=== PATIENT | male | born 1990 | race African-American/Black ===

== ENCOUNTER 2024-02-02 10:04 | Emergency (ER) | payer BC, SELFPAY ==
[2024-02-02 10:28] VITALS: BP 148/67; PULSE 62; TEMP 36.4; O2SAT 100
--- NOTE | 2024-02-02 12:10 | ED.BACK ---
HPI - Back Pain/Injury General Chief Complaint: Back Pain/Injury Stated Complaint: BACK PAIN X4 DAYS Time Seen by Provider: 02/02/24 11:37 History of Present Illness HPI Narrative: Patient is a 34-year-old male who presents to the ER with back pain for the last 4 days. Began when he woke up in the morning on 01/29/24. He has a knot in the lower part of his back on the right side. Radiates down to his right leg. No numbness or tingling of the leg or groin. No difficulty with urination defecation. No improvement with naproxen or ibuprofen. Related Data Allergies Allergy/AdvReac Type Severity Reaction Status Date / Time No Known Allergies Allergy Verified 02/02/24 11:31 Review of Systems Constitutional: Constitutional: Reports no additional constitutional complaints Gastrointestinal: Gastrointestinal: Reports no additional gastrointestinal complaints Genitourinary: Genitourinary: Reports no additional male genitourinary complaints Musculoskeletal: Musculoskeletal: Reports back pain, Denies arthralgias, Denies joint swelling and Denies muscle cramps Neurologic: Reports system reviewed and no additional complaints, except as documented PMFSH Past Medical History Medical History (Updated 02/02/24 @ 12:17 by Franco Ferguson MD) Healthy adult male Surgical History Surgical History (Updated 02/02/24 @ 12:13 by Franco Ferguson MD) No history of previous surgery Exam Narrative: GENERAL: Well-appearing, well-nourished, and in no acute distress. HEAD: Normocephalic, atraumatic. ENT: Mucous membranes moist. CHEST: Clear to auscultation. No respiratory distress. HEART: Regular rate and rhythm. Normal peripheral pulses. BACK: no midline tenderness of the T/L-spine. There is a knot in the paraspinal musculature on the right side at the level of L5. EXTREMITIES: Normal range of motion. No edema. SKIN: Warm, dry, no rash. NEURO: Alert and oriented x3. PSYCH: Normal mood and affect. Course Course Emergency Course: Discussed treatment plan. No trauma so it is not felt that patient needs an imaging study. We will add on muscle relaxers for home. Discussed massage in hydration as well as rest. 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 Discussed he should not take Flexeril with operating heavy machinery.. Vital Signs Vital signs: Vital Signs Temperature 97.5 F L 02/02/24 10:28 Pulse Rate 62 02/02/24 10:28 Blood Pressure 148/67 H 02/02/24 10:28 Pulse Oximetry 100 02/02/24 10:28 Temperature 97.5 F L 02/02/24 10:28 Pulse Rate 62 02/02/24 10:28 Blood Pressure 148/67 H 02/02/24 10:28 Pulse Oximetry 100 02/02/24 10:28 Discharge Plan Discharge Clinical Impression: Lumbar strain Patient Disposition: Home, Self-Care Condition: Stable Instructions: Acute Low Back Pain (ED) Additional Instructions: Please return to the emergency department if you develop severe pain that is not controlled by pain medications or if you are unable to walk because of pain or weakness. Return to the emergency department immediately if you develop fevers, loss of bowel or bladder control (dribbling of urine or having accidents you wouldn't normally have), inability to urinate, numbness of your genital or anal area, or weakness/numbness of your legs or arms as these could all be signs of a serious medical emergency. Prescriptions: New cyclobenzaprine 10 mg tablet 10 mg PO TID PRN (Reason: muscle spasm) Qty: 20 0RF Follow-up/Referrals: UNKNOWN,DOCTOR [Primary Care Provider] - 1 Week Stand Alone Forms: Work/School Release IP
[2024-02-02] MEDS: CYCLOBENZAPRINE HCL 10 MG TABLET PO (12:13)
[2024-02-02] MEDS: KETOROLAC (*BKC) 60 MG/2 ML VIAL IM (12:13)
[2024-02-02 12:54] VITALS: BP 141/77; PULSE 55; RESP 18; O2SAT 98
== END 2024-02-02 12:55 | disposition home or self-care (01) ==
PROVIDERS: Emergency Provider Emergency Medicine
DX: S39.012A Strain of muscle, fascia and tendon of lower back, initial encounter (principal); X58.XXXA Exposure to other specified factors, initial encounter
CPT/HCPCS: 96372; 96375; 99283; A9270; J1885